=== PATIENT | male | born 2000 | race Caucasian/White ===

== ENCOUNTER 2020-10-26 15:30 | Emergency (ER) | payer OTHER, SELFPAY ==
[2020-10-26 15:33] VITALS: BP 119/75; PULSE 111; RESP 22; TEMP 37.3; O2SAT 100
--- NOTE | 2020-10-26 15:37 | DI.RAD.S_ITS ---
PROCEDURE: XR KNEE RT 3V INDICATIONS: pain/swelling no known injury TECHNIQUE: 3 views of the knee were acquired. COMPARISON: None. FINDINGS: Bones: No fractures or dislocations. There is slight lateral tilt and shift of the patella. No suspicious bony lesions. Soft tissues: There is a large joint effusion. No suspicious soft tissue calcifications. IMPRESSION: 1. No fracture or dislocation. 2. Large joint effusion. 3. Slight lateral tilt and shift of the patella. Dictated by: Rolf Noland M.D. on 10/26/2020 at 16:14 Approved by: Rolf Noland M.D. on 10/26/2020 at 16:15
--- NOTE | 2020-10-26 18:37 | ED_ITS ---
HPI - Extremity Problem General Chief complaint: Extremity Problem,Nontraumatic Stated complaint: hurt right knee/leg Time Seen by Provider: 10/26/20 18:04 Source: patient Mode of arrival: Ambulatory History of Present Illness HPI Narrative: Patient is a 20-year-old male. He does have a history of Crohn's disease however he has not had any of his Remicade since the end of last year. 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 He states that several weeks ago he started having pain and swelling in his right knee. There is no specific trauma associated with this he states that since that time he had swelling and pain to his left knee but that seems to have improved and he also now has swelling and pain to his ankles. He has not had any fevers. Again no specific trauma to explain his symptoms. Review of Systems Constitutional Constitutional: Denies fever(s) Musculoskeletal Comments: Multiple joint pain see HPI Integumentary/Breasts Comments: No rashes Neurologic Comments: No change in neurologic status Hematologic/Lymphatic On Anticoagulants: No Allergic/Immunologic Allergic/Immunologic: Denies urticaria Patient History Medical History Crohn's disease Social History lives independently: Yes tobacco type: vaping Substance Use Type: marijuana Exam Initial Vital Signs Initial Vital Signs: Vital Signs Temperature 99.2 F 10/26/20 15:33 Pulse Rate 111 H 10/26/20 15:33 Respiratory Rate 22 10/26/20 15:33 Blood Pressure 119/75 10/26/20 15:33 Pulse Oximetry 100 10/26/20 15:33 Const General: cooperative and healthy appearing Resp Effort & Inspection: normal respiratory effort Cardio Pulses: dorsalis pedis present bilaterally Skin General: no rashes or lesions noted Neuro General: patient alert, patient awake and moves all extremities Extrem Other: Patient does have an effusion to his right knee however there is no redness over the area. Is not warm to touch. Has generalized discomfort. He also has discomfort of his left knee and her potentially is a small effusion there but not as much as the right. He does have swelling to bilateral ankles. Psych Appearance: grossly normal and well kempt Course Orders Ordered: ED Orders 10/26/20 15:37 XR knee RT 3V Stat Vital Signs Vital signs: Vital Signs - 8 hr 10/26/20 15:33 Temperature 99.2 F Pulse Rate 111 H Respiratory Rate 22 Blood Pressure 119/75 Pulse Oximetry 100 MDM - Extremity (Nontraumatic) Imaging Data Extremity x-ray #1: Radiologist's Impression: [address] [id number] ReportSigned Patient: Luis M Tavares EMR#: [id number]: [id number]:[id number]/Sex: 20 / MDate of Service: 10/26/20Loc: EDAccession Number: [id number] Procedure: XR knee RT 3V Ordering Provider: Italia Salazar D.O. PROCEDURE: XR KNEE RT 3V INDICATIONS: pain/swelling no known injury TECHNIQUE: 3 views of the knee were acquired. COMPARISON: None. FINDINGS: Bones: No fractures or dislocations. There is slight lateral tilt and shift of the patella. No suspicious bony lesions. Soft tissues: There is a large joint effusion. No suspicious soft tissue calcifications. IMPRESSION: 1. No fracture or dislocation. 2. Large joint effusion. 3. Slight lateral tilt and shift of the patella. Dictated by: Rolf Noland M.D. on 10/26/2020 at 16:14 Approved by: Rolf Noland M.D. on 10/26/2020 at 16:15 [facility] Narrative Medical decision making narrative: There were no fractures noted on the x-rays. Have low suspicion for gout. Low suspicion for infection. Given the fact that it has started in his right knee and then moved to his left knee and is now back worsen his right knee and is now also affecting his ankles I do suspect that th is is a rheumatologic issue. He does have a history of Crohn's disease. He is not on Remicade. He states that he is currently being evaluated for Valley fever and had labs drawn today by his painter tumbling barrel. Is also scheduled for CT scan. He states that no GI provider will continue to give him the Remicade until the valley fever issue has been fully evaluated. I feel that we can hold on further workup for now. I did inform him that his symptoms today are most likely rheumatologic issue. Informed him that he needed to talk with his primary doctor about a referral to see a yarrow gatherer. He was given strict return precautions. He expressed understanding and agreement. Discharge Plan Departure Patient Disposition: Home Clinical Impression: Arthritis, Effusion of knee joint right Instructions: DI for Arthritis Activity Restrictions/Additional Instructions: You do need to contact her primary doctor because your going to need a referral to see Rheumatology. I suspect your symptoms are related to an autoimmune issue. Return to the emergency department for any new or worsening symptoms
[2020-10-26 18:48] VITALS: BP 115/70; PULSE 85; RESP 18; O2SAT 98
== END 2020-10-26 18:48 | disposition home or self-care (01) ==
PROVIDERS: Emergency Provider Emergency Medicine
DX: M25.461 Effusion, right knee (principal); M17.11 Unilateral primary osteoarthritis, right knee
CPT/HCPCS: 73562; 99283